=== PATIENT | male | born 1935 | race Caucasian/White ===

== ENCOUNTER 2016-08-20 07:41 | Day surgery (SDC) | payer MEDICARE, OTHER ==
[~2016-08-20] VITALS: Ht 177.8 cm; Wt 65.8 kg
[2016-08-20] VITALS (14 sets, daily range): BP systolic 112–177; BP diastolic 57–99
[~2016-08-20 07:41] MED LIST: AML2.5T PO; ASPI-266 PO; BENA1TAB14 PO; BP MED; CHOL400T40 PO; DIURETIC; OMEG-82 PO; ROSU10TA12 PO
--- NOTE | 2016-08-20 07:47 | ED Syncope ---
General Chief Complaint: Dizziness/Syncope Stated Complaint: SYNCOPAL EPISODE Source of Information: Patient Exam Limitations: No Limitations History of Present Illness Time Seen by Provider: 07:45 Initial Comments This 81-year-old white male presents after he had a [place] episode [place]. The patient according to the nurse bystanders did not have a pulse when they first checked him. They initiated 3 rescue breaths and a single chest compression and the patient awoke. The patient related to the paramedics that he felt syncopal as he was bowing to pray in [place] this morning. Patient denies associated fever or chills, chest pain, headache or neck pain, lateralizing or localizing neurologic complaints, associated productive cough, vomiting, diarrhea, or dysuria hematuria. 8am further history reveals the patient had not eaten breakfast this morning and had taken his blood pressure pill without food. The patient has had a history of bradycardia. His heart rate is normally in the 40s to 50s. The patient has also had a history of intermittent hypotension felt to potentially be due to his hypertensive medications. Furthermore the patient relates he has had no similar episodes in the past, changes in his medications, or significant ingestion of alcohol. He denies recreational drugs. 9:40 the patient's Telegraph Printer Mechanic came to visit the patient. The collective history is that the patient was syncopal for a full 5 minutes. Allergies and Home Medications Allergies Coded Allergies: NKANo Known Allergies (Unverified Allergy, Mild, 09/19/09) Home Medications Amlodipine Besylate 2.5 Mg Tab 5 MG PO BID (Reported) Aspirin 81 Mg Tablet.dr 81 MG PO DAILY (Reported) Benazepril/Hydrochlorothiazide 1 Tab Tablet 1 TAB PO DAILY (Reported) Bimatoprost 2.5 Ml Drops 2.5 ML OP HS (Reported) Cholecalciferol 400 Unit Tablet 400 UNIT PO DAILY (Reported) Melatonin 5 Mg Tablet 10 MG PO HS (Reported) [place]-3S/Dha/Epa/Fish Oil/D3 1 Each Capsule 1 EACH PO DAILY (Reported) Rosuvastatin Calcium 10 Mg Tablet (Reported) Constitutional: No chills, No fever, No malaise, weakness EENTM: blurred visionNo double vision Respiratory: No cough Cardiovascular: No chest pain, No palpitations Gastrointestinal: No abdominal pain, No diarrhea, No nausea, No vomiting Genitourinary: No dysuria, No frequency Musculoskeletal: No back pain Skin: No rash Psychiatric/Neurological: No Symptoms Reported Past Rmnweon-Fhyrdn-Bullvv Hx Surgeries HX Surgeries: No Respiratory Hx Respiratory Disorders: No Cardiovascular Hx Cardiac Disorders: Yes Cardiac Disorders: Hypertension Neurological Hx Neurological Disorders: No Genitourinary Hx Genitourinary Disorders: No Gastrointestinal Hx Gastrointestinal Disorders: No Musculoskeletal Hx Musculoskeletal Disorders: No Endocrine Hx Endocrine Disorders: Yes Reviewed Nursing Assessment Reviewed/Agree w Nursing PMH: Yes Physical Exam Vital Signs Vital Sign - Last 12Hours 08/20/16 07:45 Temp 96.6 Pulse 45 Resp 18 B/P 132/60 Pulse Ox 97 O2 Delivery Room Air Capillary Refill : General Appearance: No Apparent Distress WD/WN HEENT: Normal ENT Inspection Neck: Full Range of Motion Normal Inspection Non Tender Cardiovascular: Regular Rate, Rhythm Respiratory: Chest Non Tender Lungs Clear Normal Breath Sounds Gastrointestinal: Normal Bowel Sounds No Organomegaly No Pulsatile Mass Back: Normal Inspection Extremities: Normal Capillary Refill Normal Inspection Normal Range of Motion Neurologic/Psychiatric: Alert Oriented x3 No Motor/Sensory Deficits Normal Mood/Affect Cranial Nerves: Normal Hearing, Normal Speech, PERRL Motor/Sensory: No Motor Deficit, No Sensory Deficit Skin: Normal Color Warm/Dry Progress/Results/Core Measures Results/Orders Lab Results Laboratory Tests Test 08/20/16 07:40 08/20/16 08:03 08/20/16 08:25 Range/Units Activated Partial Thromboplast Time 25 24-35 SEC Alanine Aminotransferase (ALT/SGPT) 13 0-55 U/L Albumin 4.2 3.2-4.5 G/DL Alkaline Phosphatase 52 40-136 U/L Anion Gap 9 5-14 MMOL/L Aspartate Amino Transf (AST/SGOT) 16 5-34 U/L BUN/Creatinine Ratio 16 Basophils # (Auto) 0.0 0.0-0.1 10^3/uL Basophils (%) (Auto) 0 0-10 % Blood Urea Nitrogen 21 H 7-18 MG/DL Calcium Level 9.1 8.5-10.1 MG/DL Carbon Dioxide Level 24 21-32 MMOL/L Chloride Level 104 98-107 MMOL/L Creatinine 1.31 H 0.60-1.30 MG/DL D-Dimer 0.40 0.00-0.49 UG/ML Eosinophils # (Auto) 0.2 0.0-0.3 10^3/uL Eosinophils (%) (Auto) 2 0-10 % Estimat Glomerular Filtration Rate 53 Glucose Level 131 H 70-105 MG/DL Hematocrit 37 L 40-54 % Hemoglobin 12.5 L 13.3-17.7 G/DL INR Comment 1.1 0.8-1.4 Lymphocytes # (Auto) 1.6 1.0-4.0 X 10^3 Lymphocytes (%) (Auto) 18 12-44 % Mean Corpuscular Hemoglobin 30 25-34 PG Mean Corpuscular Hemoglobin Concent 34 32-36 G/DL Mean Corpuscular Volume 88 80-99 FL Mean Platelet Volume 10.6 H 7.4-10.4 FL Monocytes # (Auto) 1.0 0.0-1.0 X 10^3 Monocytes (%) (Auto) 11 0-12 % Neutrophils # (Auto) 6.0 1.8-7.8 X 10^3 Neutrophils (%) (Auto) 68 42-75 % Platelet Count 203 130-400 10^3/uL Potassium Level 3.8 3.6-5.0 MMOL/L Prothrombin Time 13.9 12.2-14.7 SEC Red Blood Count 4.13 L 4.35-5.85 10^6/uL Red Cell Distribution Width 12.0 10.0-14.5 % Sodium Level 137 135-145 MMOL/L Total Bilirubin 0.7 0.1-1.0 MG/DL Total Protein 6.7 6.4-8.2 G/DL Troponin I < 0.30 <0.30 NG/ML White Blood Count 8.8 4.3-11.0 10^3/uL Glucometer 122 H 70-110 MG/DL Urine Bacteria FEW H /HPF Urine Bilirubin NEGATIVE NEGATIVE Urine Casts NONE /LPF Urine Clarity CLEAR Urine Color YELLOW Urine Crystals NONE /LPF Urine Culture Indicated YES Urine Glucose (UA) NEGATIVE NEGATIVE Urine Ketones NEGATIVE NEGATIVE Urine Leukocyte Esterase NEGATIVE NEGATIVE Urine Mucus MODERATE H /LPF Urine Nitrite NEGATIVE NEGATIVE Urine Protein 1+ H NEGATIVE Urine RBC 5-10 H /HPF Urine RBC (Auto) 3+ H NEGATIVE Urine Specific [place] 1.020 1.016-1.022 Urine Urobilinogen NORMAL NORMAL MG/DL Urine WBC NONE /HPF Urine pH 5 5-9 My Orders Orders-BE RODARTE MD Cbc With Automated Diff (08/20/16 07:48) Protime With Inr (3/3/17 07:48) Partial Thromboplastin Time (08/20/16 07:48) Comprehensive Metabolic Panel (08/20/16 07:48) Fibrin Degradation Products (08/20/16 07:48) Troponin I (08/20/16 07:48) Ua Culture If Indicated (08/20/16 07:48) Chest 1 View, Ap/Pa Only (08/20/16 07:48) Ekg Tracing (08/20/16 07:48) Accucheck Stat ONCE (08/20/16 07:48) Saline Lock/Iv-Start (08/20/16 07:48) Saline Lock/Iv-Start (08/20/16 07:48) Vital Signs-Stroke Q1H (08/20/16 07:48) Ct Head Wo-R/O Stroke (08/20/16 07:48) O2 (08/20/16 07:48) Intake & Output 06,14,22 (08/20/16 07:48) Monitor-Rhythm Ecg Trace Only (08/20/16 07:48) Dysphagia Screening Tool (08/20/16 07:48) Post Thrombolytic Adminstratio (08/20/16 07:48) General/Regular (08/20/16 Lunch) Urine Culture (08/20/16 08:25) Vital Signs/I&O Vital Sign - Last 12Hours 08/20/16 07:45 Temp 96.6 Pulse 45 Resp 18 B/P 132/60 Pulse Ox 97 O2 Delivery Room Air Progress Note : Time: 09:42 Progress Note The patient's EKG demonstrated a sinus bradycardia with a rate of approximate 45 without evidence of an acute carotid injury. This was unchanged from the patient's previous EKG. Patient's laboratory evaluation failed to demonstrate evidence of acute pathology. Chest x-ray and CT of the head were unremarkable. I discussed the presentation with the patient and his . I recommended a conservative course of observation today. Dr. Duncan was kind enough to admit the patient. She requested a cardiology consult with Dr. Chavez. Departure Communication Time/Spoke to Admitting Phy: 09:[address] Chavez. Time/Spoke to Consulting Physi: 09:47 Communication/Consulting Dr. Chavez. Impression Impression: Primary Impression: Syncope and collapse Disposition: 09 ADMITTED INPATIENT Condition: Improved Decision to Admit Reason: Admit from ER (General) Departure-Patient Inst. Referrals: BE DYSON MD (PCP/Family) Primary Care Physician BE RODARTE MD Aug 20, 2016 07:47
[2016-08-20 07:53] LABS: BASOPHILS % (AUTO) 0 % (0-10); EOSINOPHILS # (AUTO) 0.2 10^3/uL (0.0-0.3); EOSINOPHILS % (AUTO) 2 % (0-10); LYMPHOCYTES # (AUTO) 1.6 X 10^3 (1.0-4.0); LYMPHOCYTES % (AUTO) 18 % (12-44); MEAN CORPUSCULAR HEMOGLOBIN 30 PG (25-34); MEAN CORPUSCULAR HGB CONC 34 G/DL (32-36); MEAN CORPUSCULAR VOLUME 88 FL (80-99); MEAN PLATELET VOLUME 10.6 FL (7.4-10.4); MONOCYTES % (AUTO) 11 % (0-12); NEUTROPHILS % (AUTO) 68 % (42-75); PLATELET COUNT 203 10^3/uL (130-400); RED BLOOD COUNT 4.13 10^6/uL (4.35-5.85); WHITE BLOOD COUNT 8.8 10^3/uL (4.3-11.0)
[2016-08-20 08:10] LABS: INR 1.1 (0.8-1.4); PROTHROMBIN TIME PATIENT 13.9 SEC (12.2-14.7)
[2016-08-20 08:16] LABS: ALANINE AMINOTRANSFERASE 13 U/L (0-55); ALBUMIN 4.2 G/DL (3.2-4.5); ANION GAP 9 MMOL/L (5-14); ASPARTATE AMINO TRANSFERASE 16 U/L (5-34); BILIRUBIN,TOTAL 0.7 MG/DL (0.1-1.0); BLOOD UREA NITROGEN 21 MG/DL (7-18); BUN/CREATININE RATIO 16; CALCIUM 9.1 MG/DL (8.5-10.1); CARBON DIOXIDE 24 MMOL/L (21-32); CHLORIDE 104 MMOL/L (98-107); CREATININE SERUM 1.31 MG/DL (0.60-1.30); GFR ESTIMATED 53; GLUCOSE 131 MG/DL (70-105); POTASSIUM 3.8 MMOL/L (3.6-5.0); SODIUM 137 MMOL/L (135-145); TOTAL PROTEIN 6.7 G/DL (6.4-8.2)
--- NOTE | 2016-08-20 08:17 | Diagnostic Imaging Report ---
INDICATION: Syncope. 0802 hrs. Comparison is made study of 09/25/2015. FINDINGS: Heart size and pulmonary vascularity are within normal limits, and the lungs are clear, bilaterally. IMPRESSION: Unremarkable chest. Dictated by: Dictated on workstation # [id number]
[2016-08-20 08:23] LABS: TROPONIN I < 0.30 NG/ML (<0.30)
[2016-08-20] MEDS ORDERED: MELA5TAB14 PO (08:33)
[2016-08-20] MEDS ORDERED: BIMA2.5D4 OU (08:33)
[2016-08-20 08:36] LABS: BILIRUBIN,URINE NEGATIVE (NEGATIVE); KETONES,URINE NEGATIVE (NEGATIVE); LEUKOCYTE ESTERASE ,URINE NEGATIVE (NEGATIVE); NITRITE,URINE NEGATIVE (NEGATIVE); PH,URINE 5 (5-9); PROTEIN,URINE 1+ (NEGATIVE); UROBILINOGEN,URINE NORMAL (NORMAL)
--- NOTE | 2016-08-20 08:49 | Diagnostic Imaging Report ---
CT scan of the head without intravenous contrast. INDICATION: Syncope. FINDINGS: There is no intracranial hemorrhage. There is an 8 mm CSF density lesion in the deep white matter along the anterior superior left frontal region may relate to an old lacunar infarct. There is no hydrocephalus. No extra-axial fluid collection seen. The visualized portions of the paranasal sinuses demonstrate mild opacification of the inferior left mastoid air cells. Also mild mucosal thickening in the mid ethmoidal air cells seen. The calvarium appears grossly unremarkable. IMPRESSION: 1. No intracranial hemorrhage. 2. Subcentimeter lesion in the left frontal white matter is likely an incidental finding, may relate to an old lacunar infarct. 3. Mild partial opacification in the left mastoid sinus and the ethmoidal air cells. Dictated by: Dictated on workstation # [id number]
--- NOTE | 2016-08-20 10:59 | Consultation-Cardiology ---
HPI-Cardiology Cardiology Consultation Date of Consultation 08/20/16 Date of Admission HPI 81-year-old gentleman well known to my practice he has history of labile hypertension and sick sinus syndrome, frequent palpitation, has been intolerant to beta blockers. Was doing well until this morning while he was at [employer] had a syncopal episode felt lightheaded felt that he is not given a make it to the alter then passed out it was long enough that patient received CPR, given the last rite by the property administrator then he regained consciousness, continue to have fatigue , noted to be bradycardic, had no pulse during the syncopal episode, currently still bradycardic with a heart rate in the 40s. Home Medications & Allergies Allergies: Coded Allergies: NKANo Known Allergies (Unverified Allergy, Mild, 09/19/09) Home Medication List Reviewed: Yes CAH-Lkzjyn-Iopufp Hx Patient Social History Marital Status: Employed/Student: retired Alcohol Use: Denies Use Recreational Drug Use: No Smoking Status: Never a Smoker Recent Foreign Travel: No Recent Infectious Disease Expo: No Recent Hopitalizations: No Immunizations Up To Date Date of Influenza Vaccine: Mar 24, 2016 Past Medical History Past medical history is discussed below Family Medical History Family Medical Hx Noncontributory Constitutional: see HPI malaise weakness other (syncope) EENTM: no symptoms reported see HPI Respiratory: see HPINo cough, No dyspnea on exertion, No hemoptysis, No orthopnea, No phlegm, No short of breath, No stridor, No wheezing, No other Cardiovascular: see HPINo chest pain, No edema, No Hx of Intervention, No palpitations, syncopeNo vascular heart diseas, No other Gastrointestinal: no symptoms reported see HPI Genitourinary: no symptoms reported see HPI Musculoskeletal: no symptoms reported see HPI Skin: no symptoms reported see HPI Psychiatric/Neurological: No Symptoms Reported See HPI Reviewed Test Results Reviewed Test Results Lab Laboratory Tests Test 08/20/16 07:40 08/20/16 08:03 08/20/16 08:25 Range/Units Activated Partial Thromboplast Time 25 24-35 SEC Alanine Aminotransferase (ALT/SGPT) 13 0-55 U/L Albumin 4.2 3.2-4.5 G/DL Alkaline Phosphatase 52 40-136 U/L Anion Gap 9 5-14 MMOL/L Aspartate Amino Transf (AST/SGOT) 16 5-34 U/L BUN/Creatinine Ratio 16 Basophils # (Auto) 0.0 0.0-0.1 10^3/uL Basophils (%) (Auto) 0 0-10 % Blood Urea Nitrogen 21 H 7-18 MG/DL Calcium Level 9.1 8.5-10.1 MG/DL Carbon Dioxide Level 24 21-32 MMOL/L Chloride Level 104 98-107 MMOL/L Creatinine 1.31 H 0.60-1.30 MG/DL D-Dimer 0.40 0.00-0.49 UG/ML Eosinophils # (Auto) 0.2 0.0-0.3 10^3/uL Eosinophils (%) (Auto) 2 0-10 % Estimat Glomerular Filtration Rate 53 Glucose Level 131 H 70-105 MG/DL Hematocrit 37 L 40-54 % Hemoglobin 12.5 L 13.3-17.7 G/DL INR Comment 1.1 0.8-1.4 Lymphocytes # (Auto) 1.6 1.0-4.0 X 10^3 Lymphocytes (%) (Auto) 18 12-44 % Mean Corpuscular Hemoglobin 30 25-34 PG Mean Corpuscular Hemoglobin Concent 34 32-36 G/DL Mean Corpuscular Volume 88 80-99 FL Mean Platelet Volume 10.6 H 7.4-10.4 FL Monocytes # (Auto) 1.0 0.0-1.0 X 10^3 Monocytes (%) (Auto) 11 0-12 % Neutrophils # (Auto) 6.0 1.8-7.8 X 10^3 Neutrophils (%) (Auto) 68 42-75 % Platelet Count 203 130-400 10^3/uL Potassium Level 3.8 3.6-5.0 MMOL/L Prothrombin Time 13.9 12.2-14.7 SEC Red Blood Count 4.13 L 4.35-5.85 10^6/uL Red Cell Distribution Width 12.0 10.0-14.5 % Sodium Level 137 135-145 MMOL/L Total Bilirubin 0.7 0.1-1.0 MG/DL Total Protein 6.7 6.4-8.2 G/DL Troponin I < 0.30 <0.30 NG/ML White Blood Count 8.8 4.3-11.0 10^3/uL Glucometer 122 H 70-110 MG/DL Urine Bacteria FEW H /HPF Urine Bilirubin NEGATIVE NEGATIVE Urine Casts NONE /LPF Urine Clarity CLEAR Urine Color YELLOW Urine Crystals NONE /LPF Urine Culture Indicated YES Urine Glucose (UA) NEGATIVE NEGATIVE Urine Ketones NEGATIVE NEGATIVE Urine Leukocyte Esterase NEGATIVE NEGATIVE Urine Mucus MODERATE H /LPF Urine Nitrite NEGATIVE NEGATIVE Urine Protein 1+ H NEGATIVE Urine RBC 5-10 H /HPF Urine RBC (Auto) 3+ H NEGATIVE Urine Specific [place] 1.020 1.016-1.022 Urine Urobilinogen NORMAL NORMAL MG/DL Urine WBC NONE /HPF Urine pH 5 5-9 Physical Exam Vital Signs Vital Sign - Last 12Hours 08/20/16 07:45 Temp 96.6 Pulse 45 Resp 18 B/P 132/60 Pulse Ox 97 O2 Delivery Room Air Capillary Refill : Less Than 3 Seconds General Appearance: No Apparent Distress WD/WN Eyes: Bilateral Eye EOMI, Bilateral Eye Normal Inspection, Bilateral Eye PERRL HEENT: PERRL/EOMI TMs Normal Normal ENT Inspection Pharynx Normal Neck: Full Range of Motion Normal Inspection Non Tender Supple Carotid Bruit Respiratory: Chest Non Tender Lungs Clear Normal Breath Sounds No Accessory Muscle Use No Respiratory Distress Cardiovascular: No Edema No Gallop No JVD No Murmur Normal Peripheral Pulses Bradycardia Gastrointestinal: Normal Bowel Sounds No Organomegaly No Pulsatile Mass Non Tender Soft Back: Normal Inspection No CVA Tenderness No Vertebral Tenderness Extremity: Normal Capillary Refill Normal Inspection Normal Range of Motion Non Tender No Calf Tenderness No Pedal Edema Neurologic/Psychiatric: Alert Oriented x3 No Motor/Sensory Deficits Normal Mood/Affect Skin: Normal Color Warm/Dry Lymphatic: No Adenopathy A/P-Cardiology Admission Diagnosis Syncope Sick sinus syndrome Hypertension Bradycardia Hyperlipidemia Assessment/Plan Syncope, probably secondary to sick sinus syndrome and asystole, patient had no pulse, known to have underlying sick sinus syndrome with episodes of palpitation in the past, discussed with him the management plan with his current resent palpitation and his past history I recommended proceeding with cardiac pacemaker implantation. Procedure was explained in length to the patient and his all pros and cons were explained. Sick sinus syndrome, history of bradycardia, unable to tolerate beta blockers in the past, had a Holter monitor in the past showing frequent PVCs and ventricular bigeminy and trigeminy. Unable to tolerate treatment due to underlying sick sinus syndrome Palpitation, secondary to ventricular arrhythmia. Unable to tolerate therapy in the past. Planning to initiate beta blockers after pacemaker implantation. History of labile hypertension, monitor blood pressure. Continue on current medications. Multiple risk factors for coronary artery disease, had a stress test done in September 2015 and echocardiogram on the fourth normal showing no ischemia. Mild carotid stenosis by ultrasound in September 2015. Continue to monitor. Hyperlipidemia, followed and managed by primary care physician Diabetes mellitus, followed and managed by primary care physician. FAY KIM MD Aug 20, 2016 10:58
[2016-08-20] MEDS ORDERED: NS IV 1000 ML 1,000 ML IV ONE (11:00)
[2016-08-20] MEDS ORDERED: ceFAZolin 1,000 MG (ANCEF) VIAL IV ONE (11:00)
[2016-08-20] MEDS ORDERED: BACITRACIN INJECTION 50,000 UNIT, SODIUM CHLORIDE 0.9% IRRIGATIO 500 ML IR ONE ×2 (11:00)
--- NOTE | 2016-08-20 11:00 | Cardiac Procedure Note-CS/ASA ---
Pre-Procedure Note Pre-Op Procedure Note H&P Reviewed The H&P was reviewed, patient examined and no changes noted. Date H&P Reviewed: Aug 20, 2016 Time H&P Reviewed: 10:59 Conscious Sedation Pre-Proced Time Reviewed: 10:59 ASA Class: 3 Airway Mallampati Classification: ([place] appropriate class) I. II. III, IV Lungs Heart ASA score ASA 1: a normal healthy patient ASA 2: a patient with a mild systemic disease (mid diabetes, controlled hypertension, obesity x ASA 3: a patient with a severe systemic disease that limits activity (angina , COPD, prior Myocardial infarction) ASA 4: a patient with an incapacitating disease that is a constant threat to life (CHF, renal failure) ASA 5: a moribund patient not expected to survive 24 hrs. (ruptured aneurysm) ASA 6: a declared brain patient whose organs are being harvested. For emergent operations, add the letter E after the classification Grade 3 Sedation Plan: Analgesia, Amnesia, Plan communicated to team members, Discussed options with patient/fam, Discussed risks with patient/fam Note The patient is an appropriate candidate to undergo the planned procedure, sedation, and anesthesia. The patient immediately re-assessed prior to indication. FAY KIM MD Aug 20, 2016 11:00
[2016-08-20] MEDS ORDERED: ACETAMINOPHEN 325 MG TABLET/CAPLET (TYLENOL) PO PRN (11:30)
[2016-08-20] MEDS ORDERED: NS IV 1000 ML 1,000 ML IV SCH ×2 (11:30→16:31)
[2016-08-20] MEDS ORDERED: OMG1KC PO (13:14)
[2016-08-20] MEDS ORDERED: GUAI1TBM14 PO (13:15)
[2016-08-20] MEDS ORDERED: SILD100T PO (13:16)
[2016-08-20] MEDS ORDERED: HYDR12.56 PO (13:31)
[2016-08-20] MEDS ORDERED: BENA20TA2 PO (13:31)
[2016-08-20] MEDS ORDERED: HEParin (CATH LAB) 1,000 ML IV ONE (13:38)
[2016-08-20] MEDS ORDERED: LIDOCAINE 1% INJ 20 ML (XYLOCAINE) VIAL ONE (13:38)
[2016-08-20] MEDS ORDERED: ceFAZolin 1,000 MG (ANCEF) VIAL ONE (13:39)
[2016-08-20] MEDS ORDERED: CATHETER FLUSH 10 ML SYR IV PRN (14:00)
[2016-08-20] MEDS ORDERED: fentaNYL INJECTION 100 MCG/2 ML AMP ONE (14:46)
[2016-08-20] MEDS ORDERED: MIDAZOLAM 5 MG/5 ML (VERSED) VIAL ONE (14:46)
[2016-08-20] MEDS ORDERED: NEO/POLY/BAC (NEOSPORIN) OINT 15 GM TUBE ONE (16:29)
[2016-08-20] MEDS ORDERED: MELATONIN 3 MG TABLET PO PRN (16:45)
[2016-08-20] MEDS ORDERED: guaiFENesin/DM (ROBITUSSIN DM) 10 ML UDC PO PRN (16:45)
[2016-08-20] MEDS ORDERED: PATIENT MAY USE OWN MEDS, ALL PO SCH (16:45)
[2016-08-20] MEDS ORDERED: NON-FORMULARY MEDICATION 1 EA EA (Melatonin 10 MG) PO PRN (16:45)
[2016-08-20] MEDS ORDERED: PATIENT MAY USE OWN MEDS, ALL MC SCH (16:45)
--- NOTE | 2016-08-20 17:59 | Diagnostic Imaging Report ---
INDICATION: Syncope. TECHNIQUE: Single view chest at 4:58 p.m. CORRELATION STUDY: 08/20/2016. FINDINGS: Since the prior study, a left-sided dual-chamber pacemaker has been placed. Proximally, over the right heart border, is a lead near the cardiac apex. Heart size is enlarged but relatively stable. Vasculature is slightly prominent without evidence of overt failure. Lung sarabia are clear. Asymmetric elevation of the right hemidiaphragm. No pneumothorax. IMPRESSION: 1. Interval placement of left-sided pacemaker. 2. Cardiac enlargement with mild vascular prominence without evidence of overt failure at this time. Dictated by: Dictated on workstation # [id number]
[2016-08-20] MEDS ORDERED: CRESTOR 10 MG TAB PO SCH (21:00)
[2016-08-20] MEDS ORDERED: ASPIRIN E.C. 81 MG (ECOTRIN) TAB PO SCH (21:00)
[2016-08-20] MEDS ORDERED: amLODIPine 2.5MG (NORVASC) TAB PO SCH ×2 (21:00)
[2016-08-20] MEDS ORDERED: LUMIGAN 0.01% OPTH SOLUTION OU SCH (21:00)
[2016-08-20] MEDS ORDERED: ROSUVASTATIN 5 MG (CRESTOR) TABLET PO SCH (21:00)
[2016-08-20] MEDS ORDERED: ROSUVASTATIN CALCIUM 10 MG PO SCH (21:00)
[2016-08-20] MEDS ORDERED: NON-FORMULARY MEDICATION 1 EA EA (Bimatoprost (Lumigan) 1 DROP) OU SCH (21:00)
[2016-08-20] MEDS: ceFAZolin INJECTION 1,000 MG in NS (IVPB) 50 ML IV SCH (21:20)
[2016-08-21 04:51] LABS: BASOPHILS % (AUTO) 0 % (0-10); EOSINOPHILS # (AUTO) 0.1 10^3/uL (0.0-0.3); EOSINOPHILS % (AUTO) 1 % (0-10); LYMPHOCYTES # (AUTO) 1.3 X 10^3 (1.0-4.0); LYMPHOCYTES % (AUTO) 15 % (12-44); MEAN CORPUSCULAR HEMOGLOBIN 30 PG (25-34); MEAN CORPUSCULAR HGB CONC 34 G/DL (32-36); MEAN CORPUSCULAR VOLUME 88 FL (80-99); MEAN PLATELET VOLUME 10.6 FL (7.4-10.4); MONOCYTES # (AUTO) 1.1 X 10^3 (0.0-1.0); MONOCYTES % (AUTO) 13 % (0-12); NEUTROPHILS # (AUTO) 6.1 X 10^3 (1.8-7.8); NEUTROPHILS % (AUTO) 71 % (42-75); PLATELET COUNT 164 10^3/uL (130-400); RED BLOOD COUNT 3.92 10^6/uL (4.35-5.85); RED CELL DISTRIBUTION WIDTH 11.9 % (10.0-14.5); WHITE BLOOD COUNT 8.6 10^3/uL (4.3-11.0)
[2016-08-21 05:22] LABS: ALANINE AMINOTRANSFERASE 12 U/L (0-55); ALBUMIN 3.5 G/DL (3.2-4.5); ANION GAP 10 MMOL/L (5-14); ASPARTATE AMINO TRANSFERASE 17 U/L (5-34); BILIRUBIN,TOTAL 0.4 MG/DL (0.1-1.0); BLOOD UREA NITROGEN 17 MG/DL (7-18); BUN/CREATININE RATIO 19; CALCIUM 8.4 MG/DL (8.5-10.1); CARBON DIOXIDE 22 MMOL/L (21-32); CHLORIDE 104 MMOL/L (98-107); GFR ESTIMATED > 60; GLUCOSE 102 MG/DL (70-105); POTASSIUM 3.6 MMOL/L (3.6-5.0); SODIUM 136 MMOL/L (135-145); TOTAL PROTEIN 5.9 G/DL (6.4-8.2)
[2016-08-21] MEDS: ceFAZolin INJECTION 1,000 MG in NS (IVPB) 50 ML IV SCH (06:35)
[2016-08-21 08:00] VITALS: BP 147/72
[2016-08-21] MEDS ORDERED: CEFU250S PO (08:21)
[2016-08-21] MEDS ORDERED: AMLO2.5T PO (08:21)
[2016-08-21] MEDS ORDERED: METO-270 PO (08:21)
--- NOTE | 2016-08-21 08:26 | Short Stay Summary ---
History of Present Illness History of Present Illness Reason for visit/HPI 81-year-old gentleman well known to my practice he has history of labile hypertension and sick sinus syndrome, frequent palpitation, has been intolerant to beta blockers. Was doing well until this morning while he was at [employer] had a syncopal episode felt lightheaded felt that he is not given a make it to the alter then passed out it was long enough that patient received CPR, given the last rite by the veneer stacker then he regained consciousness, continue to have fatigue , noted to be bradycardic, had no pulse during the syncopal episode, currently still bradycardic with a heart rate in the 40s. Date of Admission Aug 20, 2016 at 09:45 Date of Discharge August 21, 2016 Attending Physician Olive Duncan DO Admitting Physician Sundeep Zavala MD Consult Dr. Chavez Allergies and Home Medications Allergies Coded Allergies: NKANo Known Allergies (Unverified Allergy, Mild, 09/19/09) Home Medications Amlodipine Besylate 2.5 Mg Tab 7.5 MG PO HS (Reported) TAKES 3 (2.5MG) TABLETS Amlodipine Besylate 2.5 Mg Tablet #30 5 MG PO HS Prescribed by: FAY CHAVEZ on 08/21/16820 Aspirin 81 Mg Tablet.dr 81 MG PO HS (Reported) Benazepril HCl 20 Mg Tablet 20 MG PO DAILY (Reported) Bimatoprost 2.5 Ml Drops 1 DROP OU HS (Reported) Cefuroxime Axetil 250 Mg/5 Ml Susp.recon #14 500 MG PO BID Prescribed by: FAY CHAVEZ on 08/21/16820 Guaifenesin/Dextromethorphan 1 Each Tbmp.12hr 1 TAB PO BID PRN PRN CONGESTION ( Reported) Hydrochlorothiazide 12.5 Mg Tablet 12.5 MG PO DAILY (Reported) Melatonin 5 Mg Tablet 10 MG PO HS PRN PRN SLEEP (Reported) Metoprolol Succinate 25 Mg Tab.er.24h #30 25 MG PO DAILY Prescribed by: FAY CHAVEZ on 08/21/16820 [place] 3 Polyunsat Fatty Acids 1,000 Mg Cap 1,000 MG PO DAILY (Reported) Rosuvastatin Calcium 10 Mg Tablet 10 MG PO HS (Reported) Sildenafil Citrate 100 Mg Tablet 100 MG PO DAILY PRN PRN ED (Reported) Past Tygmhvv-Buwwsc-Wtiaoh Hx Patient Social History Marrital Status: Employed/Student: retired Alcohol Use: Denies Use Recreational Drug Use: No Smoking Status: Never a Smoker Physical Abuse Screen: No Sexual Abuse: No Recent Foreign Travel: No Contact w/other who traveled: No Recent Hopitalizations: No Recent Infectious Disease Expo: No Immunizations Up To Date Date of Pneumonia Vaccine: Sep 10, 2014 Date of Influenza Vaccine: Mar 24, 2016 Seasonal Allergies Seasonal Allergies: No Surgeries HX Surgeries: No Respiratory Hx Respiratory Disorders: No Cardiovascular Hx Cardiovascular Disorders: Yes (BRADYCARDIA) Cardiac Disorders: Hypertension Neurological Hx Neurological Disorders: No Genitourinary Hx Genitourinary Disorders: No Gastrointestinal Hx Gastrointestinal Disorders: No Musculoskeletal Hx Musculoskeletal Disorders: No Endocrine Hx Endocrine Disorders: Yes (GWQ-XIRBAKKV-3.2 A1C) HEENT HX ENT Disorders: No Cancer Hx Cancer: No Psychosocial Hx Psychiatric Problems: No Integumentary HX Skin/Integumentary Disorder: No Blood Transfusions Hx Blood Disorders: No Reviewed Nursing Assessment Reviewed/Agree w Nursing PMH: Yes Constitutional: see HPI malaise EENTM: no symptoms reported see HPI Respiratory: no symptoms reported see HPI Cardiovascular: see HPINo chest pain, No edema, No Hx of Intervention, No palpitations, syncopeNo vascular heart diseas, No other Gastrointestinal: no symptoms reported see HPI Genitourinary: no symptoms reported see HPI Musculoskeletal: no symptoms reported see HPI Skin: no symptoms reported see HPI Psychiatric/Neurological: No Symptoms Reported See HPI Physical Exam Vital Signs Vital Sign - Last 12Hours 08/20/16 07:45 Temp 96.6 Pulse 45 Resp 18 B/P 132/60 Pulse Ox 97 O2 Delivery Room Air Capillary Refill : Less Than 3 Seconds General Appearance: No Apparent Distress WD/WN Eyes: Bilateral Eye EOMI, Bilateral Eye Normal Inspection, Bilateral Eye PERRL HEENT: PERRL/EOMI TMs Normal Normal ENT Inspection Pharynx Normal Neck: Full Range of Motion Normal Inspection Non Tender Supple Carotid Bruit Respiratory: Chest Non Tender Lungs Clear Normal Breath Sounds No Accessory Muscle Use No Respiratory Distress Cardiovascular: Regular Rate, Rhythm No Edema No Gallop No JVD No Murmur Normal Peripheral Pulses Gastrointestinal: Normal Bowel Sounds No Organomegaly No Pulsatile Mass Non Tender Soft Back: Normal Inspection No CVA Tenderness No Vertebral Tenderness Extremity: Normal Capillary Refill Normal Inspection Normal Range of Motion Non Tender No Calf Tenderness No Pedal Edema Neurologic/Psychiatric: Alert Oriented x3 No Motor/Sensory Deficits Normal Mood/Affect Skin: Normal Color Warm/Dry Lymphatic: No Adenopathy Clinical Quality Measures DVT/VTE Risk/Contraindication: VTE Present on Admission: No Risk Factor Score Per Nursin RFS Level Per Nursing on Admit: 2=Moderate Short Stay Diagnosis Discharge Diagnosis-Short Stay Admission Diagnosis: syncope Sick sinus syndrome Hypertension Premature ventricular contractions Final Discharge Diagnosis: syncope Sick sinus syndrome Cardiac pacemaker implant Hypertension Premature ventricular contractions Conclusion Labs Laboratory Tests 08/20/16 08:25: Urine Bacteria FEWH, Urine Bilirubin NEGATIVE, Urine Casts NONE, Urine Clarity CLEAR, Urine Color YELLOW, Urine Crystals NONE, Urine Culture Indicated YES, Urine Glucose (UA) NEGATIVE, Urine Ketones NEGATIVE, Urine Leukocyte Esterase NEGATIVE, Urine Mucus MODERATEH, Urine Nitrite NEGATIVE, Urine Protein 1+H, Urine RBC 5-10H, Urine RBC (Auto) 3+H, Urine Specific Murray 1.020, Urine Urobilinogen NORMAL, Urine WBC NONE, Urine pH 5 08/20/16 14:54: Troponin I < 0.30 08/20/16 22:15: Troponin I < 0.30 08/21/16 03:30: Alanine Aminotransferase (ALT/SGPT) 12, Albumin 3.5, Alkaline Phosphatase 45, Anion Gap 10, Aspartate Amino Transf (AST/SGOT) 17, BUN/Creatinine Ratio 19, Basophils # (Auto) 0.0, Basophils (%) (Auto) 0, Blood Urea Nitrogen 17, Calcium Level 8.4L, Carbon Dioxide Level 22, Chloride Level 104, Creatinine 0.90, Eosinophils # (Auto) 0.1, Eosinophils (%) (Auto) 1, Estimat Glomerular Filtration Rate > 60, Glucose Level 102, Hematocrit 34L, Hemoglobin 11.6L, Lymphocytes # (Auto) 1.3, Lymphocytes (%) (Auto) 15, Mean Corpuscular Hemoglobin 30, Mean Corpuscular Hemoglobin Concent 34, Mean Corpuscular Volume 88, Mean Platelet Volume 10.6H, Monocytes # (Auto) 1.1H, Monocytes (%) (Auto) 13H, Neutrophils # (Auto) 6.1, Neutrophils (%) (Auto) 71, Platelet Count 164, Potassium Level 3.6, Red Blood Count 3.92L, Red Cell Distribution Width 11.9, Sodium Level 136, Total Bilirubin 0.4, Total Protein 5.9L, White Blood Count 8.6 Conclusion/Plan Syncope, probably secondary to sick sinus syndrome and asystole, status post dual-chamber pacemaker implantation MRI safe, vision is feeling well, started on low-dose beta blockers. Sick sinus syndrome, history of bradycardia, unable to tolerate beta blockers in the past, had a Holter monitor in the past showing frequent PVCs and ventricular bigeminy and trigeminy, has been unable to tolerate beta blockers, started on Toprol after pacemaker implant. Palpitation, secondary to ventricular arrhythmia. Unable to tolerate therapy in the past, started on Toprol-XL 25 mg daily. History of labile hypertension, monitor blood pressure. Continue on current medications. Multiple risk factors for coronary artery disease, had a stress test done in September 2015 and echocardiogram on the fourth normal showing no ischemia. Mild carotid stenosis by ultrasound in September 2015. Continue to monitor. Hyperlipidemia, followed and managed by primary care physician Diabetes mellitus, followed and managed by primary care physician. FAY CHAVEZ MD Aug 21, 2016 08:26
[2016-08-21] MEDS ORDERED: OMEGA 3 (FISH OIL) 1000 MG CAP PO SCH (09:00)
[2016-08-21] MEDS ORDERED: HYDROCHLOROTHIAZIDE 12.5 MG (HCTZ) CAP PO SCH ×2 (09:00)
[2016-08-21] MEDS ORDERED: NON-FORMULARY MEDICATION 1 EA EA (Hydrochlorothiazide 12.5 MG) PO SCH (09:00)
[2016-08-21] MEDS ORDERED: BENAZEPRIL 20 MG (LOTENSIN) TAB PO SCH ×2 (09:00)
[2016-08-21 11:14] VITALS: BP 138/70
--- NOTE | 2016-08-23 00:21 | PROCEDURE REPORT ---
PROCEDURE PHYSICIAN: FAY KIM DATE OF PROCEDURE: 08/20/2016 DUAL CHAMBER PACEMAKER IMPLANTATION REPORT: PRIMARY PHYSICIAN: Dr. Sundeep Zavala. INDICATION: 1. Syncope. 2. Sick sinus syndrome. BRIEF HISTORY: Mr. James is a 81-year-old gentleman with history of sick sinus syndrome, bradycardia, frequent ventricular premature contractions, ventricular bigeminy and ventricular couplets. He was intolerant to beta blockers, continued to be in a heart rate in the 40s. Had a syncopal episode earlier this morning, had asystole. CPR was initiated then he regained consciousness. He was scheduled for dual-chamber pacemaker implantation. PROCEDURE NOTE: After explaining the procedure to the patient, all pros and cons were explained. All questions were answered. The patient signed consent then he was placed on the cardiac catheterization laboratory. Chest area was prepped in a sterile fashion. Local anesthesia applied, conscious sedation achieved using Versed and fentanyl. Using modified Seldinger technique, I was able to access the left subclavian vein twice, sheath was placed. I proceeded with advancement of right ventricular lead using Medtronic lead, 58 cm in length with serial number [id number], advanced to the right ventricular apex. Good sensing and capture activity was noted. Then an atrial lead was advanced to the right atrial appendage, multiple positions were attempted. We achieved a good final position. I used Medtronic lead 52 cm in length with serial number [id number], good sensing and capture activity. The R wave was measured as 5.1 mV. It was able capture at 0.5 milliseconds with 0.5 v. With ventricular lead T wave was measured at 2.1 mV. Also able to capture at 0.5 ms and 0.6 v. Then skin pocket was irrigated with antibiotic solution. Then I used an [employer]visa MRI DR Macias with serial number [id number], attached the lead and placed in the pocket. The pacemaker was tested. No complication noted. Skin pocket closed. CONCLUSION: Successful dual-chamber pacemaker implantation with no complications. Job ID: [id number] Dictated Date: 08/20/2016 16:39:35 Correctional Case Manager Date: 08/23/2016 00:14:03 / guzman
== END 2016-08-21 08:14 | disposition home or self-care (01) ==
LOC: EDUNIT# 07:41 → ER 07:43 → ICU 09:45 → 4TH 09:45 → UNDOADMOB 09:45 → 4TH 09:53 → CATH 11:25 → ICU 11:25 → CATH 08-21 08:14 → UNDODISOB 08-21 11:45
PROVIDERS: ATTEND Internal Medicine
DX: I49.5 Sick sinus syndrome (principal); R55 Syncope and collapse; I10 Essential (primary) hypertension; I49.3 Ventricular premature depolarization; E11.9 Type 2 diabetes mellitus without complications; Z79.899 Other long term (current) drug therapy
CPT/HCPCS: 33208; 36415; 70450; 71010; 80053; 81000; 82962; 84484; 85025; 85379; 85610; 85730; 87081; 87088; 93005; 93041

== ENCOUNTER → 2018-11-01 | Outpatient (CLI) | payer MEDICARE, OTHER ==
[~2018-11-01] MED LIST changes: +AMLO2.5T4 PO; +BENA20TA7 PO; +BIMA2.5D4 OU; +CEFU250S PO; +GUAI1TBM19 PO; +HYDR12.56 PO; +MELA5TAB14 PO; +METO-387 PO; +OMG1KC PO; +SILD100T PO
== END ==
LOC: CARD 11:08
PROVIDERS: ATTEND Physician Assistant
DX: I10 Essential (primary) hypertension (principal); R09.89 Other specified symptoms and signs involving the circulatory and respiratory systems; E11.9 Type 2 diabetes mellitus without complications; I08.1 Rheumatic disorders of both mitral and tricuspid valves; Z95.0 Presence of cardiac pacemaker
CPT/HCPCS: 93306

== ENCOUNTER → 2020-04-10 | Outpatient (CLI) | payer MEDICARE, OTHER ==
[~2020-04-10] MED LIST changes: -METO-387 PO; +MTP25TSR PO
--- NOTE | 2020-04-10 10:34 | Diagnostic Imaging Report ---
INDICATION: Right ankle pain and swelling. Time of exam: 10:12 AM 3 views of the right ankle were obtained. Ankle alignment is normal. Ankle mortise is well maintained. Talar dome is smooth. No fracture or dislocation is seen. There is a large plantar calcaneal spur. There is a moderate amount of soft tissue swelling about the lateral ankle. IMPRESSION: Lateral ankle swelling. No acute bony abnormality is detected. Dictated by: Dictated on workstation # [id number]
== END ==
LOC: RAD 09:59
PROVIDERS: ATTEND Internal Medicine
DX: M25.471 Effusion, right ankle (principal); M25.571 Pain in right ankle and joints of right foot
CPT/HCPCS: 73610

== ENCOUNTER → 2020-09-16 | Outpatient (CLI) | payer MEDICARE, OTHER | LOC: CARD 14:30 | PROVIDERS: ATTEND Physician Assistant | DX: I11.9 Hypertensive heart disease without heart failure (principal); I35.8 Other nonrheumatic aortic valve disorders | CPT/HCPCS: 93306 ==

== ENCOUNTER → 2020-10-28 | Outpatient (CLI) | payer MEDICARE, OTHER ==
--- NOTE | 2020-10-28 16:39 | Diagnostic Imaging Report ---
INDICATION: Postmenopausal screening COMPARISON: Baseline FINDINGS: AP Spine L1-L4: [BMD (g/cm2): 1.194] [T-Score: -0.4] [Z-Score: 0.7] [BMD Previous: NA] [BMD % Change: NA] LT Hip Neck: [BMD (g/cm2): 0.930] [T-Score: -1.1] [Z-Score: 0.8] LT Hip Total: [BMD (g/cm2):0.908] [T-Score:-1.3] [Z-Score: 0.2] [BMD Previous: NA] [BMD % Change: NA] RT Hip Neck: [BMD (g/cm2):0.921] [T-Score:-1.1] [Z-Score:0.7] RT Hip Total: [BMD (g/cm2):0.895] [T-score:-1.4] [Z-Score:0.1] [BMD Previous:NA] [BMD % Change:NA] *Indicates significant change from prior examination based on 95% confidence level. World Health Organization criteria for BMD interpretation classify patients as Normal (T-score at or above -1.0), Osteopenic (T-score between -1.0 and -2.5) or Osteoporotic (T-score at or below -2.5). LIMITATIONS AND MODIFICATION: None. FRACTURE RISK (FRAX SCORE): The ten year probability of (%): Major Osteoporotic Fracture: [NA] Hip Fracture: [NA] IMPRESSION: 1. Osteopenia (Low bone mass). 2. Baseline examination. 3. See below National Osteoporosis Foundation guidelines on when to potentially initiate pharmacologic therapy. Based on the National Osteoporosis Foundation Guidelines, pharmacologic treatment should be initiated in any of the following, unless clinical conditions suggest otherwise: * Any patient with prior fragility fracture of the hip or vertebrae. A spine fracture indicates 5X risk for subsequent spine fracture and 2X risk for subsequent hip fracture. * Osteoporosis (T-score <-2.5). * Postmenopausal women and men age 50 and older with low bone mass/osteopenia (T-score between -1.0 and -2.5) by DXA and 10-year major osteoporotic fracture greater than 20% or a 10-year probability of hip fracture greater than 3%. These fracture risks are supplied above in the FRAX score, if applicable. * Clinician judgement and/or patient preferences may indicate treatment for people with 10-year fracture probabilities above or below these levels. Dictated by: Dictated on workstation # [id number]
== END ==
LOC: RAD 14:30
PROVIDERS: ATTEND Family Medicine
DX: Z13.820 Encounter for screening for osteoporosis (principal); M85.80 Other specified disorders of bone density and structure, unspecified site
CPT/HCPCS: 77080

== ENCOUNTER → 2020-10-29 | Outpatient (CLI) | payer MEDICARE, OTHER ==
[~2020-10-29] VITALS: Ht 177 cm; Wt 67.0 kg
[~2020-10-29] MED LIST changes: +CATHETER FLUSH 10 ML SYR IV PRN; +REGADENOSON 0.4 MG/5 ML SYR (LEXISCAN) IV ONE
[2020-10-29 09:35] VITALS: BP 169/97
[2020-10-29 09:38] VITALS: BP 112/62
--- NOTE | 2020-10-29 13:56 | Cardiology Stress Test Report ---
Stress Test Report Date of Procedure/Referring: Date of Procedure: October 29, 2020 Lauren Tang Admitting Physician Sundeep Zavala MD Indications: Hypertension Baseline Heart Rate: 60 Baseline Blood Pressure: Blood Pressure Systolic: 112 Blood Pressure Diastolic: 62 Baseline Vitals Vital Signs Date Time Temp Pulse Resp B/P (MAP) Pulse Ox O2 Delivery O2 Flow Rate FiO2 10/29/20 09:35 60 17 169/97 (121) 99 Room Air Baseline EKG: Baseline EKG: NSR, LVH Summary After explaining the procedure to the patient, he signed a consent and then brought to the stress nuclear laboratory. Patient received 0.4 mg Lexiscan for stress test, ECG, heart rate and blood pressure were monitored continuously. Resting and stress dose of radio tracer were injected, imaging was acquired and reviewed in short axis, horizontal long axis and vertical long axis views. TID: 1.02 SSS: 0 SDS: 0 EF: 45 1. Patient tolerated Lexiscan well 2. No significant ischemia or infarction on SPECT images 3. Normal left ventricular size, EF 45% FAY KIM MD October 29, 2020 13:56
== END ==
LOC: CARD 09-17 07:30
PROVIDERS: ATTEND Physician Assistant
DX: I10 Essential (primary) hypertension (principal)
CPT/HCPCS: 78452; 93017; A9502

== ENCOUNTER 2023-01-01 17:49 | Observation (INO) | payer MEDICARE, OTHER ==
[~2023-01-01] VITALS: Ht 177.8 cm; Wt 67.8 kg
[~2023-01-01 17:49] MED LIST changes: +BENA-3 PO; -BENA20TA7 PO; -CATHETER FLUSH 10 ML SYR IV PRN; -REGADENOSON 0.4 MG/5 ML SYR (LEXISCAN) IV ONE
--- NOTE | 2023-01-01 18:24 | ED General ---
General Chief Complaint: Trauma-Non Activation Stated Complaint: FALL Source of Information: Patient History of Present Illness Date Seen by Provider: Jan 01, 2023 Time Seen by Provider: 18:05 Initial Comments PT ARRIVES VIA EMS FROM HOME PT HAD A SYNCOPAL EPISODE TODAY AROUND 1720 PT STATES "I FELT A LACK OF BALANCE" ALL DAY TODAY HE USES A WALKER AT HOME, AND HAD BEEN SITTING AT COMPUTER THIS MORNING, AND THEN AFTER LUNCH HE LAID DOWN WHEN HE GOT UP THIS EVENING, HE WAS WALKING TO BATHROOM AND KITCHEN AND "FELT A LACK OF BALANCE" AND PASSED OUT OR NEARLY PASSED OUT WITNESSED THE EVENT. SHE IS NOT SURE IF HE WAS COMPLETELY UNCONSCIOUS OR NOT, BUT PT THINKS HE MIGHT HAVE BEEN FOR A SECOND OR TWO HE FELL BACKWARDS AND HIT HIS HEAD ON THE FLOOR AND "FELT A POP" IN THE BACK OF HIS HEAD OR NECK HE DENIES HEAD OR NECK PAIN HE C/O PAIN TO BUTTOCKS AREA. NO HIP OR LEG PAIN NO PARESTHESIAS OR MOTOR DEFICITS NO HEADACHE NO VISION CHANGES NO CHEST PAIN NO SHORTNESS OF BREATH NO SWEATS NO PALPITATIONS NO LOSS OF BOWEL OR BLADDER CONTROL OR SADDLE ANESTHESIA PT IS NOT ON ASPIRIN OR BLOOD THINNERS. Allergies and Home Medications Allergies Coded Allergies: NKANo Known Allergies (Unverified Allergy, Mild, 09/19/09) Patient Home Medication List Amlodipine Besylate (Amlodipine Besylate) 2.5 Mg Tablet, 5 MG PO HS Prescribed by: FAY KIM on 08/21/16 08 Aspirin (Aspirin Ec Low Dose) 81 Mg Tablet.dr, 81 MG PO HS, (Reported) Entered as Reported by: CLINT LINDSEY on 10/01/14 0750 Benazepril HCl (Benazepril HCl) 20 Mg Tablet, 20 MG PO DAILY, (Reported) Entered as Reported by: PRATIMA PORTILLO on 08/20/16 1331 Bimatoprost (Lumigan) 2.5 Ml Drops, 1 DROP OU HS, (Reported) Entered as Reported by: BHUMIKA AGUIRRE on 08/20/16 0833 Cefuroxime Axetil (Ceftin) 250 Mg/5 Ml Susp.recon, 500 MG PO BID Prescribed by: FAY KIM on 08/21/16 08 Guaifenesin/Dextromethorphan (Mucinex Dm ER 1,200-60 mg Tab) 1 Each Tbmp.12hr, 1 TAB PO BID PRN for CONGESTION, (Reported) Entered as Reported by: PRATIMA PORTILLO on 08/20/16 1315 Hydrochlorothiazide (Hydrochlorothiazide) 12.5 Mg Tablet, 12.5 MG PO DAILY, (Reported) Entered as Reported by: PRATIMA PORTILLO on 08/20/16 1331 Melatonin (Melatonin) 5 Mg Tablet, 10 MG PO HS PRN for SLEEP, (Reported) Entered as Reported by: BHUMIKA AGUIRRE on 08/20/16 0833 Metoprolol Succinate (Metoprolol Succinate) 25 Mg Tab.er.24h, 25 MG PO DAILY Prescribed by: FAY KIM on 08/21/16 0821 [place] 3 Polyunsat Fatty Acids (Fish Oil 1,000 mg Capsule) 1,000 Mg Cap, 1,000 MG PO DAILY, (Reported) Entered as Reported by: PRATIMA PORTILLO on 08/20/16 1314 Rosuvastatin Calcium (Crestor) 10 Mg Tablet, 10 MG PO HS, (Reported) Entered as Reported by: PUSHPA HUTCHINS on 09/19/092025 Sildenafil Citrate (Viagra) 100 Mg Tablet, 100 MG PO DAILY PRN for ED, (Reported) Entered as Reported by: PRATIMA PORTILLO on 08/20/16 1316 Past Hrctliw-Mirlft-Wyswuj Hx Seasonal Allergies Seasonal Allergies: No Past Medical History Surgeries: No Respiratory: No Cardiac: Yes (BRADYCARDIA) Hypertension Neurological: No Gastrointestinal: No Musculoskeletal: No Endocrine: Yes (BWX-[id number]-9.2 A1C) Cancer: No Psychosocial: No Integumentary: No Blood Disorders: No Physical Exam Vital Signs Vital Signs - First Documented 01/01/23 17:57 Temp 36.3 Pulse 61 Resp 13 B/P (MAP) 202/107 (138) Pulse Ox 93 O2 Delivery Room Air Capillary Refill : Height, Weight, BMI Height: 5'10.00" Weight: 145lbs. 0.0oz. [id number]; 21.38 BMI Method:Stated Progress/Results/Core Measures Suspected Sepsis SIRS Temperature: Pulse: Respiratory Rate: Laboratory Tests 01/01/23 18:07: White Blood Count 5.4 Blood Pressure / Mean: Laboratory Tests 01/01/23 18:07: Creatinine 1.24, INR Comment 1.0, Platelet Count 176, Total Bilirubin 0.4 Results/Orders Lab Results Laboratory Tests Test 01/01/23 18:07 01/01/23 18:29 01/01/23 20:25 Range/Units White Blood Count 5.4 4.3-11.0 10^3/uL Red Blood Count 3.96 L 4.30-5.52 10^6/uL Hemoglobin 11.9 L 13.3-17.7 g/dL Hematocrit 36 L 40-54 % Mean Corpuscular Volume 90 80-99 fL Mean Corpuscular Hemoglobin 30 25-34 pg Mean Corpuscular Hemoglobin Concent 34 32-36 g/dL Red Cell Distribution Width 12.7 10.0-14.5 % Platelet Count 176 130-400 10^3/uL Mean Platelet Volume 9.8 9.0-12.2 fL Immature Granulocyte % (Auto) 1 % Neutrophils (%) (Auto) 55 42-75 % Lymphocytes (%) (Auto) 24 12-44 % Monocytes (%) (Auto) 15 H 0-12 % Eosinophils (%) (Auto) 5 0-10 % Basophils (%) (Auto) 1 0-10 % Neutrophils # (Auto) 3.0 1.8-7.8 10^3/uL Lymphocytes # (Auto) 1.3 1.0-4.0 10^3/uL Monocytes # (Auto) 0.8 0.0-1.0 10^3/uL Eosinophils # (Auto) 0.3 0.0-0.3 10^3/uL Basophils # (Auto) 0.0 0.0-0.1 10^3/uL Immature Granulocyte # (Auto) 0.1 0.0-0.1 10^3/uL Prothrombin Time 13.5 12.2-14.7 SEC INR Comment 1.0 0.8-1.4 Activated Partial Thromboplast Time 29 24-35 SEC Sodium Level 137 135-145 MMOL/L Potassium Level 3.8 3.6-5.0 MMOL/L Chloride Level 104 98-107 MMOL/L Carbon Dioxide Level 23 21-32 MMOL/L Anion Gap 10 5-14 MMOL/L Blood Urea Nitrogen 23 H 7-18 MG/DL Creatinine 1.24 0.60-1.30 MG/DL Estimat Glomerular Filtration Rate 57 BUN/Creatinine Ratio 19 Glucose Level 112 H 70-105 MG/DL Calcium Level 9.0 8.5-10.1 MG/DL Corrected Calcium 9.2 8.5-10.1 MG/DL Magnesium Level 2.4 1.6-2.4 MG/DL Total Bilirubin 0.4 0.1-1.0 MG/DL Aspartate Amino Transf (AST/SGOT) 20 5-34 U/L Alanine Aminotransferase (ALT/SGPT) 18 0-55 U/L Alkaline Phosphatase 52 40-136 U/L Troponin I < 0.028 <0.028 NG/ML Total Protein 6.5 6.4-8.2 GM/DL Albumin 3.8 3.2-4.5 GM/DL Influenza Type A (RT-PCR) Not Detected Not Detecte Influenza Type B (RT-PCR) Not Detected Not Detecte SARS-CoV-2 RNA (RT-PCR) Not Detected Not Detecte My Orders Orders - VELMA GARCIA DO Ed Iv/Invasive Line Start (01/01/23 18:14) Ekg Tracing (01/01/23 18:14) O2 (01/01/23 18:14) Monitor-Rhythm Ecg Trace Only (01/01/23 18:14) Ct Head/Cervical Spine Wo (01/01/23 18:14) Ct Thoracic/Lumbar Spine Wo (01/01/23 18:14) Chest 1 View, Ap/Pa Only (01/01/23 18:14) Pelvis 1 To 2 Views (01/01/23 18:14) Cbc With Automated Diff (01/01/23 18:14) Comprehensive Metabolic Panel (01/01/23 18:14) Magnesium (01/01/23 18:14) Protime With Inr (01/01/23 18:14) Partial Thromboplastin Time (01/01/23 18:14) Ua Culture If Indicated (01/01/23 18:14) Troponin I [place] (01/01/23 18:14) Ct [place]ysi Chest/Noang Abd-Pelv W (01/01/23 18:14) Covid 19 Inhouse Test (01/01/23 18:14) Influenza A And B By Pcr (01/01/23 18:14) Cervical Collar (01/01/23 18:20) Iohexol Injection (Omnipaque 350 Mg/Ml 1 (01/01/23 18:30) Received Contrast (Hold Metformin- Contr (01/01/23 18:30) Ns (Ivpb) (Sodium Chloride 0.9% Ivpb Bag (01/01/23 18:30) Ceftriaxone Iv/Im (Rocephin Iv/Im) (01/01/23 19:46) Hydralazine Injection (Apresoline Inject (01/01/23 20:00) Medications Given in ED Current Medications Medications Dose Ordered Sig/Tomasa Route Start Time Stop Time Status Last Admin Dose Admin Hydralazine HCl 10 mg ONCE ONCE IV 01/01/23 20:00 01/01/23 20:01 DC 01/01/23 20:02 10 MG Iohexol 100 ml ONCE ONCE IV 01/01/23 18:30 01/01/23 18:31 DC 01/01/23 18:48 75 ML Sodium Chloride 100 ml ONCE ONCE IV 01/01/23 18:30 01/01/23 18:31 DC 01/01/23 18:49 100 ML Vital Signs/I&O 01/01/23 01/01/23 17:57 20:38 Temp 36.3 36.3 Pulse 61 60 Resp 13 13 B/P (MAP) 202/107 (138) 169/80 Pulse Ox 93 93 O2 Delivery Room Air Room Air Capillary Refill : Diagnostic Imaging Comments XRAYS PER RADIOLOGIST REPORTS AT 1850 Reviewed: Reviewed by Me Departure Communication (Admissions) 1954--SPOKE WITH DR. DYSON, ACCEPTS PT FOR ADMIT. Impression Primary Impression: Syncope and collapse Additional Impressions: Hypertension Dizziness BIBASILAR INFILTRATES FLUID IN LEFT MASTOID Departure-Patient Inst. Referrals: SHARRI SPEARS MD (PCP/Family) Primary Care Physician VELMA GARCIA DO Jan 01, 2023 18:24
[2023-01-01 18:27] LABS: BASOPHILS % (AUTO) 1 % (0-10); EOSINOPHILS # (AUTO) 0.3 10^3/uL (0.0-0.3); EOSINOPHILS % (AUTO) 5 % (0-10); HEMATOCRIT 36 % (40-54); HEMOGLOBIN 11.9 g/dL (13.3-17.7); LYMPHOCYTES # (AUTO) 1.3 10^3/uL (1.0-4.0); LYMPHOCYTES % (AUTO) 24 % (12-44); MEAN CORPUSCULAR HEMOGLOBIN 30 pg (25-34); MEAN CORPUSCULAR HGB CONC 34 g/dL (32-36); MEAN CORPUSCULAR VOLUME 90 fL (80-99); MEAN PLATELET VOLUME 9.8 fL (9.0-12.2); MONOCYTES # (AUTO) 0.8 10^3/uL (0.0-1.0); MONOCYTES % (AUTO) 15 % (0-12); NEUTROPHILS % (AUTO) 55 % (42-75); PLATELET COUNT 176 10^3/uL (130-400); WHITE BLOOD COUNT 5.4 10^3/uL (4.3-11.0)
[2023-01-01] MEDS ORDERED: NS 100 ML (IVPB) BAG IV ONE (18:30)
[2023-01-01] MEDS ORDERED: IOHEXOL 350 MG/ML 100 ML (OMNIPAQUE 350) VIAL IV ONE (18:30)
[2023-01-01] MEDS ORDERED: HOLD METFORMIN - RECEIVED CONTRAST 20 ML VIAL IV SCH (18:30)
--- NOTE | 2023-01-01 18:34 | Diagnostic Imaging Report ---
INDICATION: Chest injury from a fall. Patient has a dual-chamber pacemaker. Heart size is normal. There are no effusions or pneumothoraces. Lungs are clear. There is fullness in the AP window of the mediastinum. IMPRESSION: Fullness in the left mediastinum and AP window. This may be positioning but pathology within the mediastinum cannot be excluded. Dictated by: Dictated on workstation # [id number]
--- NOTE | 2023-01-01 18:35 | Diagnostic Imaging Report ---
Indication: Pelvic injury from a fall AP view pelvis shows no fracture or dislocation. IMPRESSION: Negative pelvis Dictated by: Dictated on workstation # [id number]
[2023-01-01 18:58] LABS: ALBUMIN 3.8 GM/DL (3.2-4.5); CHLORIDE 104 MMOL/L (98-107); POTASSIUM 3.8 MMOL/L (3.6-5.0); PROTHROMBIN TIME PATIENT 13.5 SEC (12.2-14.7); SODIUM 137 MMOL/L (135-145)
[2023-01-01 19:00] LABS: GLUCOSE 112 MG/DL (70-105); TOTAL PROTEIN 6.5 GM/DL (6.4-8.2)
[2023-01-01 19:01] LABS: CARBON DIOXIDE 23 MMOL/L (21-32)
[2023-01-01 19:02] LABS: BILIRUBIN,TOTAL 0.4 MG/DL (0.1-1.0)
[2023-01-01 19:04] LABS: ALKALINE PHOSPHATASE 52 U/L (40-136); CREATININE SERUM 1.24 MG/DL (0.60-1.30); GFR ESTIMATED 57
[2023-01-01 19:05] LABS: BUN/CREATININE RATIO 19
[2023-01-01 19:07] LABS: ALANINE AMINOTRANSFERASE 18 U/L (0-55); MAGNESIUM 2.4 MG/DL (1.6-2.4)
--- NOTE | 2023-01-01 19:18 | Diagnostic Imaging Report ---
PROCEDURE: CT head and CT cervical spine without contrast. TECHNIQUE: Multiple contiguous axial images were obtained through the brain and cervical spine without the use of intravenous contrast. Sagittal and coronal reformations through the cervical spine were then performed. Auto Exposure Controls were utilized during the CT exam to meet ALARA standards for radiation dose reduction. INDICATION: 87-year-old male injured in fall at home, hit his head, presents with headache and neck pain and low back pain. COMPARISONS: CT head , CT head without contrast: FINDINGS: Midline structures are not displaced. Lateral, 3rd and 4th ventricles are normal in size, shape and anatomic position. There is no mass, mass effect, hydrocephalus or hemorrhage. Background chronic areas of microvascular ischemic change seen. There is focus of low-attenuation in the deep white matter left frontal lobe which may be gliosis from an old focal lacunar size infarct versus a prominent Virchow-Johny space. Paez-white differentiation maintained and there is no sulcal effacement. There are no abnormal extra-axial fluid collections or hemorrhage. Basilar cisterns appear normal. Sinuses and orbits are grossly normal. There is fluid in the left mastoid air cells. Bone windows show no calvarial changes. IMPRESSION: Senescent brain with involutional changes and generalized atrophy but overall no acute findings identified by nonenhanced CT criteria. Additional nonemergent findings as described above. CT cervical spine with reconstructions: FINDINGS: Axial images and sagittal and coronal reconstructions of the cervical spine demonstrate no evidence of new or healing fractures, bony destruction or remodeling. Cervical vertebral bodies appear well aligned. Vertebral body heights appear well maintained. There is a some age appropriate cervical spondylosis with some multilevel hypertrophic facet changes. Prevertebral soft tissue as well as relationship of the dens to the lateral mass of C1 is unremarkable. Parapharyngeal and paraspinous soft tissues are also grossly normal. There is bilateral carotid bifurcation disease with calcific atherosclerosis. Lung apices are clear. Superior mediastinum is unremarkable. IMPRESSION: 1. Age-appropriate cervical spondylosis but no evidence of acute fracture or subluxations. 2. There is bilateral carotid bifurcation disease with calcific atherosclerosis. Dictated by: Dictated on workstation # [id number]
--- NOTE | 2023-01-01 19:21 | Diagnostic Imaging Report ---
PROCEDURE: CT thoracic and lumbar spine without contrast. TECHNIQUE: Multiple contiguous axial images were obtained through the thoracic and lumbar spine without the use of intravenous contrast. Sagittal and coronal reformations were then performed. All CT scans use one or more of the following dose optimizing techniques: automated exposure control, MA and/or KvP adjustment based on a patient size and exam type, or iterative reconstruction. INDICATION: 85-year-old male injured in fall at home presents with back pain. COMPARISONS: None FINDINGS: Axial images in sagittal and coronal sections of the thoracic and lumbar spine demonstrate no evidence of new or healing fractures, bony destruction or remodeling. Thoracic and lumbar vertebral bodies appear well aligned, vertebral body heights appear to be well maintained. There is some mild multilevel hypertrophic facet changes. There is otherwise no evidence of acute fracture or acute subluxation seen. There is some disc degeneration at several levels. There is also some vacuum disc at the lower thoracic levels. The visualized retroperitoneal structures are grossly normal. The lungs show some posterior infiltrates in both lower lobes. IMPRESSION: 1. 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 2. No evidence of acute fracture or acute subluxation seen. 3. There is posterior infiltrates in both lower lobes. Dictated by: Dictated on workstation # [id number]
--- NOTE | 2023-01-01 19:35 | Diagnostic Imaging Report ---
INDICATION: Injured in fall at home, hit head, presents with chest, abdominal and back pain. COMPARISONS: None CTA chest, abdomen and pelvis Thin axial sections through the chest, abdomen and pelvis are obtained following intravenous contrast bolus. Multiplanar MIP images were reconstructed and reviewed. All CT scans use one or more of the following dose optimizing techniques: automated exposure control, MA and/or KvP adjustment based on patient size and exam type or iterative reconstruction. FINDINGS: There is no axillary adenopathy. There is a rounded density in the prevascular space and the mediastinum most likely representing a large pericardial cyst. A 2nd smaller area with similar attenuation is seen in the pretracheal region. This measures approximately 3.4 cm x 1.4 cm. There is no hilar adenopathy. Coronary calcifications are seen. Thoracic aortic contour is normal. There is no evidence of aneurysm or dissection. There is normal arch origin of great vessels. Pulmonary outflow tract as well as the right and left pulmonary arteries and their segmental branches are patent. Lungs show bilateral lower lobe consolidations with both an interstitial and alveolar pattern. There is no effusion or pneumothorax. Liver shows uniform attenuation. Gallbladder is unremarkable. Spleen shows the low density lesion possibly a cyst measuring 18 mm. GE junction, stomach and duodenal sweep are unremarkable. Pancreas shows atrophy but sharp margins. Adrenals are normal. Kidneys appear normal size, position and contour with symmetrical perfusion of contrast. There is no evidence of obstructive uropathy. Both ureters seen intermittently through their course and appear unremarkable. Partially filled bladder is normal. Prostatic calcifications are seen. Nonopacified loops of small bowel are normal. Large bowel contains fecal material and gas. There is a sigmoid diverticulosis but no evidence of acute diverticulitis. There is no free air, free fluid or adenopathy. Visualized vasculature shows nonaneurysmal aortic calcifications extending into the iliac and femoral arteries. There is normal origin of the visceral arteries. Bone windows show some age-appropriate adjacent change in the axial skeleton otherwise overall gross abnormalities. IMPRESSION: 1. Low density pericardial lesion measuring approximately 6.5 cm x 4.5 cm, most like represents a pericardial cyst. Similar lesion in the pretracheal region measures 3.4 cm x 1.4 cm. 2. Bilateral lower lobe consolidation with interstitial and alveolar pattern. 3. No evidence of cholecystitis, appendicitis or obstructive uropathy. No areas of peritoneal inflammation seen. There is sigmoid diverticulosis but no evidence of acute diverticulitis. 4. There is no traumatic injury of either the solid or luminal viscera of the abdomen or pelvis. 5. Bone windows show age-appropriate degenerative changes in the axial skeleton. No definite evidence of acute fracture seen. Dictated by: Dictated on workstation # [id number]
[2023-01-01] MEDS ORDERED: cefTRIAXone IV/IM 1,000 MG in NS (IVPB) 50 ML IV STA (19:46)
[2023-01-01] MEDS ORDERED: cefTRIAXone 1 GM/NS 50 ML IVPB IV SCH ×2 (20:00)
[2023-01-01] MEDS ORDERED: hydrALAZINE (APESOLINE) 20 MG/ML VIAL IV ONE (20:00)
[2023-01-01 20:40] LABS: BILIRUBIN,URINE NEGATIVE (NEGATIVE); CLARITY,URINE CLEAR; COLOR,URINE YELLOW; GLUCOSE, URINE (UA) NEGATIVE (NEGATIVE); KETONES,URINE NEGATIVE (NEGATIVE); LEUKOCYTE ESTERASE ,URINE NEGATIVE (NEGATIVE); NITRITE,URINE NEGATIVE (NEGATIVE); PH,URINE 6.5 (5-9); PROTEIN,URINE NEGATIVE (NEGATIVE)
[2023-01-01 21:04] LABS: BACTERIA,URINE NEGATIVE /HPF
[2023-01-01 21:14] VITALS: BP 188/98
[2023-01-01] MEDS ORDERED: ACETAMINOPHEN 500 MG TAB (TYLENOL) PO PRN (21:15)
[2023-01-01] MEDS ORDERED: MECLIZINE 25 MG (ANTIVERT) TAB PO PRN (21:15)
[2023-01-01] MEDS ORDERED: hydrALAZINE (APESOLINE) 20 MG/ML VIAL IV PRN (21:15)
[2023-01-01] MEDS: CATHETER FLUSH 10 ML SYR IVP SCH (21:47)
[2023-01-02] VITALS: BP 125/63
[2023-01-02 04:00] VITALS: BP 155/79
[2023-01-02 04:11] LABS: BASOPHILS % (AUTO) 0 % (0-10); EOSINOPHILS # (AUTO) 0.2 10^3/uL (0.0-0.3); EOSINOPHILS % (AUTO) 3 % (0-10); HEMATOCRIT 33 % (40-54); HEMOGLOBIN 11.4 g/dL (13.3-17.7); LYMPHOCYTES # (AUTO) 1.2 10^3/uL (1.0-4.0); LYMPHOCYTES % (AUTO) 14 % (12-44); MEAN CORPUSCULAR HEMOGLOBIN 30 pg (25-34); MEAN CORPUSCULAR HGB CONC 34 g/dL (32-36); MEAN CORPUSCULAR VOLUME 88 fL (80-99); MEAN PLATELET VOLUME 9.7 fL (9.0-12.2); MONOCYTES # (AUTO) 1.1 10^3/uL (0.0-1.0); MONOCYTES % (AUTO) 13 % (0-12); NEUTROPHILS # (AUTO) 5.8 10^3/uL (1.8-7.8); NEUTROPHILS % (AUTO) 70 % (42-75); PLATELET COUNT 155 10^3/uL (130-400); WHITE BLOOD COUNT 8.3 10^3/uL (4.3-11.0)
[2023-01-02 04:36] LABS: CALCIUM 8.6 MG/DL (8.5-10.1); POTASSIUM 3.8 MMOL/L (3.6-5.0)
[2023-01-02 05:01] LABS: CREATININE SERUM 1.18 MG/DL (0.60-1.30)
[2023-01-02] MEDS: CATHETER FLUSH 10 ML SYR IVP SCH (06:36)
[2023-01-02 08:00] VITALS: BP 163/74
[2023-01-02] MEDS ORDERED: LOSA-415 PO (08:13)
[2023-01-02] MEDS ORDERED: TMSL.4C PO (08:13)
--- NOTE | 2023-01-02 10:53 | Short Stay Summary-Hospitalist ---
History of Present Illness HPI/Chief Complaint Source of Information: Patient History of Present Illness Date Seen by Provider: Jan 01, 2023 Time Seen by Provider: 18:05 Initial Comments PT ARRIVES VIA EMS FROM HOME PT HAD A SYNCOPAL EPISODE TODAY AROUND 1720 PT STATES "I FELT A LACK OF BALANCE" ALL DAY TODAY HE USES A WALKER AT HOME, AND HAD BEEN SITTING AT COMPUTER THIS MORNING, AND THEN AFTER LUNCH HE LAID DOWN WHEN HE GOT UP THIS EVENING, HE WAS WALKING TO BATHROOM AND KITCHEN AND "FELT A LACK OF BALANCE" AND PASSED OUT OR NEARLY PASSED OUT WITNESSED THE EVENT. SHE IS NOT SURE IF HE WAS COMPLETELY UNCONSCIOUS OR NOT, BUT PT THINKS HE MIGHT HAVE BEEN FOR A SECOND OR TWO HE FELL BACKWARDS AND HIT HIS HEAD ON THE FLOOR AND "FELT A POP" IN THE BACK OF HIS HEAD OR NECK HE DENIES HEAD OR NECK PAIN HE C/O PAIN TO BUTTOCKS AREA. NO HIP OR LEG PAIN NO PARESTHESIAS OR MOTOR DEFICITS NO HEADACHE NO VISION CHANGES NO CHEST PAIN NO SHORTNESS OF BREATH NO SWEATS NO PALPITATIONS NO LOSS OF BOWEL OR BLADDER CONTROL OR SADDLE ANESTHESIA Upon my arrival patient reports that his bottom is little bit sore but denied pain anywhere else. He reports that he has a short-term wave of instability when he sits up is different than the vertigo that he has had in the past. He does have a history of orthostatic hypotension and presyncope secondary to this in the past. He also has a past history of sick sinus syndrome for which she underwent pacemaker placement several years ago with no known history for coronary disease or cerebrovascular disease. He did have bronchitis type symptoms for about 2 weeks following a trip his was sick as well but it took him a lot longer to recover he has not had return of any increase in cough he reports he coughs up a little bit of clear sputum in the morning but feels that he is pretty much recovered from his other respiratory symptoms for which she first became symptomatic about 4 weeks ago and lasted for about 2 weeks. He denies chills fever or night sweats with normal appetite. Date Seen 01/02/23 Time Seen by a Provider: 10:30 Attending Physician Be Dyson MD PCP Admitting Physician: Be Dyson MD Attending Physician: Be Dyson MD Referring Physician Date of Admission Jan 01, 2023 at 20:44 Home Medications & Allergies Home Medications Reviewed patient Home Medication Reconciliation performed by pharmacy medication reconciliations plating technician and/or nursing. Patients Allergies have been reviewed. Allergies Allergies Coded Allergies NKANo Known Allergies (Unverified Allergy, Mild, 09/19/09) Past Uyejmus-Ycyedb-Liqxhm Hx Patient Social History Tobacco Use?: No Smoking Status: Never a Smoker Smokeless Tobacco Frequency: Never a User Use of E-Cig and/or Vaping dev: No Substance use?: No Alcohol Use?: No Pt feels they are or have been: No Immunizations Up To Date Date of Influenza Vaccine: Mar 24, 2016 Date of Pneumonia Vaccine: Sep 10, 2014 Seasonal Allergies Seasonal Allergies: No Current Status Advance Directives: No Communicates: Verbally Primary Language: Nam[place]ian Preferred Spoken Language: [place]ian Is interpretation needed?: No Sensory deficits: Vision impairment Additional sensory deficits: GLASSES IN ROOM Implanted or [employer] D: Pacemaker Past Medical History Hypertension Blood Disorders: No Review of Systems Constitutional: see HPI Physical Exam Physical Exam Vital Signs Vital Signs - First Documented 01/01/23 17:57 Temp 36.3 Pulse 61 Resp 13 B/P (MAP) 202/107 (138) Pulse Ox 93 O2 Delivery Room Air Capillary Refill : Height, Weight, BMI Height: 5'10.00" Weight: 145lbs. 0.0oz. [id number]; 21.44 BMI Method:Stated General Appearance: No Apparent Distress Respiratory: Chest Non Tender, Lungs Clear, Normal Breath Sounds, No Accessory Muscle Use, No Respiratory Distress Cardiovascular: Regular Rate, Rhythm, No Edema, No Gallop, No JVD, No Murmur, Normal Peripheral Pulses Gastrointestinal: Normal Bowel Sounds, No Organomegaly, No Pulsatile Mass, Non Tender, Soft Neurologic/Psychiatric: Alert, Oriented x3, No Motor/Sensory Deficits, Normal Mood/Affect, manual tester II-XII Norm as Tested, Other (Patient ambulated independently with a walker he feels like he wants to list to the left but he is able to demonstrate doing so and correct himself independently while walking with his walker. He did not exhibit an orthostatic blood pressure drop having been off of antihypertensive medication since night before last.) Results Results/Procedures Labs Laboratory Tests 01/01/23 18:07 01/02/23 04:05 Patient resulted labs reviewed. Short Stay Diagnosis Discharge Diagnosis-Short Stay Admission Diagnosis 1. Syncope secondary to orthostatic hypotension. 2. Resolving atypical pneumonia no evidence for active infection via history at this time. This may be contributing somewhat to #1. 3. Diet-controlled type 2 diabetes good control. 4. Hypertension Final Discharge Diagnosis Same as admission diagnosis Conclusion Plan Patient was admitted with note telemetry problems and no further episodes of syncope presyncope or arrhythmia noted on telemetry either. Off of blood pressure medication this morning his supine blood pressure was in the 1 teen over 70 range standing he was 126 over upper 70 range after ambulating standing blood pressure was 138/70 range with a heart rate of 70 and regular. On admission in the emergency room after syncopal episode his blood pressure was quite high at 200 but on no medication at return to normal. We did discuss likely adrenaline surge post hypotensive event and my concern about overtreatment of blood pressures and the fact that considering his advanced age longstanding diabetes and likely loss of vascular compliance we should be judging the need for blood pressure medication with standing pressures only. For now he will be discharged off losartan and off metoprolol check standing blood pressures only and resume 50 mg of losartan for a standing systolic pressure of 160 or higher. He is to call the office on Tuesday and I will see him on for repeat blood pressure checks both sitting and standing and discuss whether or not he goes back on regular antihypertensive medication. No other changes in medication were made. Discussed the importance of continue to use his walker for now until he is feeling more stable and that if he is developing any worsening respiratory symptoms purulent sputum cough congestion would need to be treated for pneumonia. BE DYSON MD Jan 02, 2023 10:53
[2023-01-02 12:00] VITALS: BP 138/86
== END 2023-01-02 11:16 | disposition home or self-care (01) ==
LOC: EDUNIT# 17:49 → ER 17:54 → CSD 20:27 → UNDOADMOB 20:44 → UNDODISOB 01-02 11:16
PROVIDERS: ADMIT Internal Medicine; ATTEND Internal Medicine
DX: I95.1 Orthostatic hypotension (principal); R42 Dizziness and giddiness; J18.9 Pneumonia, unspecified organism; E11.9 Type 2 diabetes mellitus without complications; I10 Essential (primary) hypertension; H74.8X2 Other specified disorders of left middle ear and mastoid
CPT/HCPCS: 70450; 71045; 71275; 72125; 72128; 72131; 72170; 74177; 80048; 80053; 81000; 83735; 84484; 85025 ×2; 85610; 85730; 87636; 93005; 93041; 96365; 96366; 96375; 99284; G0378; 36415

== ENCOUNTER 2023-01-12 05:47 | Outpatient (CLI) | payer MEDICARE, OTHER ==
[~2023-01-12] VITALS: Ht 177.8 cm; Wt 70.0 kg
[~2023-01-12 05:47] MED LIST changes: +LOSA-415 PO; +TMSL.4C PO
== END 2023-01-12 10:21 | disposition home or self-care (01) ==
LOC: PREOP 05:47
PROVIDERS: ATTEND Internal Medicine
DX: Z01.818 Encounter for other preprocedural examination (principal)

== ENCOUNTER 2023-01-21 07:42 | Day surgery (SDC) | payer MEDICARE, OTHER ==
--- NOTE | 2023-01-12 08:08 | HISTORY AND PHYSICAL ---
EGD HISTORY AND PHYSICAL HISTORY OF PRESENT ILLNESS: Mr. James is a typically spry 88-year-old white male who came in for early followup, reporting he has been feeling lightheaded, especially after he gets up in the morning and before noon. It is positional when he is standing only or when he gets up, he has a wave of weakness and a lightheaded sensation. If he stands, it will go away within about 10 seconds. He denies syncope. He does have history of pacemaker placement for sick sinus syndrome with a past history of syncope. He is not having any symptoms supine or sitting. He also reported dysphagia, predominantly to liquids and intermittent. Denied any heartburn symptoms. He has lost some weight and has not really been attempting to do so. He denies melena or bright red blood per rectum. Denies epigastric or chest pain. PHYSICAL EXAMINATION: GENERAL: Reveals a white male. VITAL SIGNS: When he first walked in sitting and sat down, blood pressure is 144/84. At the end of the interview standing after a minute, his blood pressure was 88/50, not reporting any dizziness. Heart rate was 72 and regular. CHEST: Clear to auscultation. CARDIOVASCULAR: Revealed a regular rate and rhythm without murmur, S3, or S4. ABDOMEN: Soft, supple without mass, organomegaly, or tenderness. ASSESSMENT AND PLAN: 1. Orthostatic hypotension in an individual with hypertension and longstanding type 2 diabetes that has been under good control. He was advised to discontinue the morning dose of losartan , he takes at 25 mg. We will continue his bedtime dose. I did note that he is on Flomax as well. We may need to discuss discontinuing this medication or switching it to Uroxatral due to his reported decrease in orthostatic hypotension. He will return in several weeks and monitor some standing blood pressures at home. 2. Dysphagia, predominantly to liquids, but has been getting progressively over the past several months. The patient is being set up for EGD evaluation at his request in early January. He is not currently on any antiplatelet therapy and will continue to abstain from aspirin and nonsteroidal medication in the interim. Job ID: [id number] DocumentID: [id number] Dictated Date: 12/22/2022 15:48:18 [employer] Paraprofessional Date: 12/22/2022 16:27:00 Dictated By: BE DYSON MD
[~2023-01-21] VITALS: Ht 177 cm; Wt 70.0 kg
[2023-01-21] MEDS ORDERED: LACTATED RINGERS 1,000 ML IV STA (07:46)
--- NOTE | 2023-01-21 07:53 | Pre-Op Note & Conscious Sedat ---
Pre-Operative Progress Note Date H&P Reviewed: Jan 21, 2023 Time H&P Reviewed: 07:53 History & Physical: H&P Reviewed, Patient Examed, No changes noted Pre-Op Diagnosis: dysphagia Moderate Sedation PreProcedure ASA Score 2 Airway Lungs Heart ASA score ASA 1: a normal healthy patient ASA 2: a patient with a mild systemic disease (mid diabetes, controlled hypertension, obesity ASA 3: a patient with a severe systemic disease that limits activity (angina, COPD, prior Myocardial infarction) ASA 4: a patient with an incapacitating disease that is a constant threat to life (CHF, renal failure) ASA 5: a moribund patient not expected to survive 24 hrs. (ruptured aneurysm) ASA 6: a declared brain- patient whose organs are being harvested. For emergent operations, add the letter E after the classification Mallampati Classification Grade 1 Sedation Plan Analgesia, Amnesia, Plan communicated to team members, Discussed options with patient/fam, Discussed risks with patient/fam The patient is an appropriate candidate to undergo the planned procedure, sedation, and anesthesia. The patient immediately re-assessed prior to indication. BE DYSON MD Jan 21, 2023 07:53
[2023-01-21] MEDS ORDERED: HURRICAINE EXT TUBE (BENZOCAINE) XX PRN (08:00)
[2023-01-21] MEDS ORDERED: PROPOFOL INJECTION 50 ML IV ONE (08:14)
[2023-01-21 08:22] VITALS: BP 170/59
[2023-01-21 08:37] VITALS: BP 120/63
--- NOTE | 2023-01-21 08:37 | Progress Note-Post Operative ---
Post-Procedure Note Physician (s)/Environmental Studies Department Chair (s) Physician BE DYSON MD Pre-Procedure Diagnosis Pre-Procedure Diagnosis: dysphagia Post-Procedure Diagnosis Post-operative diagnosis: The patient was placed in the left lateral decubitus position. The endoscope was inserted into the oral cavity and under direct visualization the esophagus is unabated. The endoscope was passed down the esophagus to stomach and to the second portion of the duodenum. A careful inspection was made as the endoscope withdrawn. Findings the posterior pharynx epiglottis arytenoid aperture and true and false vocal folds were unremarkable to visual inspection. Proximal and midesophagus were unremarkable. There is a small sliding hiatal hernia presents with what appears to be a ring that is widely patent at the GE junction which is unremarkable in appearance otherwise it remained widely patent throughout viewing photograph was obtained. there was no evidence for Ferris's change or erosive esophagitis. No evidence for obstruction was noted. The cardia of the stomach was unremarkable. Several small fundal polyps were noted. The antrum was unremarkable with no evidence for gastritis. The pylorus pyloric channel duodenal bulb and second portion of the of the duodenum was unremarkable as well. A/P 1. A small sliding hiatal hernia is present with a widely patent ring the distal esophagus with no evidence for erosive esophagitis despite the fact that there was no sphincter closure noted at any time during visualization. Discussed the importance of careful attention to mastication and eating more slowly and fluids with food. BE DYSON MD Jan 21, 2023 08:37
[2023-01-21 08:42] VITALS: BP 115/61
[2023-01-21 09:05] VITALS: BP 122/61
[2023-01-21 09:18] VITALS: BP 122/61
--- NOTE | 2023-01-21 12:52 | Anesthesia-General Post-Op ---
MAC Patient Condition Mental Status/LOC: Same as Preop Cardiovascular: Satisfactory Nausea/Vomiting: Absent Respiratory: Satisfactory Pain: Controlled Complications: Absent Post Op Complications Complications None Follow Up Care/Instructions Patient Instructions None needed. Anesthesiology Discharge Order Discharge Order Patient is doing well, no complaints, stable vital signs, no apparent adverse anesthesia problems. No complications reported per nursing. CONSUELO PATINO CRNA Jan 21, 2023 12:52
== END 2023-01-21 09:30 | disposition home or self-care (01) ==
LOC: ENDO 07:42
PROVIDERS: ATTEND Internal Medicine
DX: K44.9 Diaphragmatic hernia without obstruction or gangrene (principal); K31.7 Polyp of stomach and duodenum; I95.1 Orthostatic hypotension; I10 Essential (primary) hypertension; E11.9 Type 2 diabetes mellitus without complications; Z79.899 Other long term (current) drug therapy; Z95.0 Presence of cardiac pacemaker